=== PATIENT | male | born 1950 | race Caucasian/White ===

== ENCOUNTER 2024-09-12 08:58 | Outpatient (RCR) | payer MEDICARE, BC, SELFPAY ==
[2024-09-07 14:47] LABS: Glucose - Point of Care 92 mg/dl (70-99)
[2024-09-07 15:28] LABS: Glucose - Point of Care 106 mg/dl (70-99)
[2024-09-12 08:22] LABS: Glucose - Point of Care 187 mg/dl (70-99)
[2024-09-12 09:02] LABS: Glucose - Point of Care 119 mg/dl (70-99)
== END 2024-09-12 23:59 | disposition home or self-care (01) ==
LOC: CRHB 08:58
PROVIDERS: ATTENDING PHYSICIAN Internal Medicine Cardiovascular Disease
DX: Z95.5 Presence of coronary angioplasty implant and graft (principal); I25.10 Atherosclerotic heart disease of native coronary artery without angina pectoris
CPT/HCPCS: 82962; G0422; G0423

== ENCOUNTER 2024-10-12 09:47 | Outpatient (RCR) | payer MEDICARE, BC, SELFPAY ==
[2024-09-14 11:03] LABS: Glucose - Point of Care 160 mg/dl (70-99)
[2024-09-14 11:50] LABS: Glucose - Point of Care 93 mg/dl (70-99)
[2024-09-17 09:21] LABS: Glucose - Point of Care 169 mg/dl (70-99)
[2024-09-17 10:02] LABS: Glucose - Point of Care 97 mg/dl (70-99)
[2024-09-19 09:33] LABS: Glucose - Point of Care 177 mg/dl (70-99)
[2024-09-19 10:03] LABS: Glucose - Point of Care 129 mg/dl (70-99)
[2024-09-21 09:23] LABS: Glucose - Point of Care 203 mg/dl (70-99)
[2024-09-21 10:06] LABS: Glucose - Point of Care 141 mg/dl (70-99)
[2024-09-28 09:19] LABS: Glucose - Point of Care 207 mg/dl (70-99)
== END 2024-10-12 23:59 | disposition home or self-care (01) ==
LOC: CRHB 09:47
PROVIDERS: ATTENDING PHYSICIAN Internal Medicine Cardiovascular Disease; FAMILY PHYSICIAN Internal Medicine Cardiovascular Disease
DX: I25.10 Atherosclerotic heart disease of native coronary artery without angina pectoris (principal); Z95.5 Presence of coronary angioplasty implant and graft
CPT/HCPCS: 82962; G0422; G0423

== ENCOUNTER 2024-11-12 10:04 | Outpatient (RCR) | payer MEDICARE, BC, SELFPAY ==
[2024-11-09 09:49] LABS: HDL Cholesterol 42 mg/dl; LDL Cholesterol, Calculated 35 mg/dl; Total Cholesterol 91 mg/dl (50-199); Triglyceride 72 mg/dl (10-149); Very Low Density Lipoprotein 14 mg/dl (0-30)
== END 2024-11-12 23:59 | disposition home or self-care (01) ==
LOC: CRHB 10:04
PROVIDERS: ATTENDING PHYSICIAN Internal Medicine Cardiovascular Disease; FAMILY PHYSICIAN Internal Medicine Cardiovascular Disease
DX: I25.10 Atherosclerotic heart disease of native coronary artery without angina pectoris (principal); Z95.5 Presence of coronary angioplasty implant and graft
CPT/HCPCS: 36415; 80061; G0422; G0423

== ENCOUNTER 2024-12-07 11:22 | Outpatient (RCR) | payer MEDICARE, BC, SELFPAY | END 2024-12-10 14:37 | disposition home or self-care (01) | LOC: CRHB 11:22 | PROVIDERS: ATTENDING PHYSICIAN Internal Medicine Cardiovascular Disease; FAMILY PHYSICIAN Internal Medicine Cardiovascular Disease | DX: I25.10 Atherosclerotic heart disease of native coronary artery without angina pectoris (principal); Z95.5 Presence of coronary angioplasty implant and graft | CPT/HCPCS: G0422; G0423 ==